=== PATIENT | female | born 1970 | race Hispanic/Latino ===

== ENCOUNTER 2023-06-20 09:57 | Emergency (ER) | payer SELFPAY ==
[~2023-06-20] VITALS: Ht 170.2 cm; Wt 80.5 kg
[2023-06-20] MEDS ORDERED: ADENOSINE 6MG/2ML 3 ML ONE (10:10)
[2023-06-20] MEDS ORDERED: ADENOSINE 6 MG/2 ML VIAL IV ONE (10:15)
[2023-06-20] MEDS ORDERED: DILTIAZEM HCL 5 MG/ML 5 ML VIAL IV STA (10:18)
[2023-06-20] MEDS ORDERED: DIGOXIN INJ 0.25 MG/ML 2 ML AMP IV STA (10:18)
[2023-06-20] MEDS ORDERED: METOPROLOL TARTRATE INJ 1 MG/ML VIAL IV STA (10:18)
[2023-06-20] MEDS ORDERED: SODIUM CHLORIDE 0.9% 1000ML 1,000 ML IV STA (10:19)
[2023-06-20] MEDS ORDERED: SODIUM CHLORIDE 0.9% 1000ML 1,000 ML ONE (10:28)
[2023-06-20 11:08] VITALS: O2SAT 96
== END 2023-06-20 11:20 | disposition home or self-care (01) ==
LOC: FSED 09:59
DX: R00.2 Palpitations (principal); I47.10 Supraventricular tachycardia, unspecified; R42 Dizziness and giddiness; R94.31 Abnormal electrocardiogram [ECG] [EKG]
CPT/HCPCS: 71045; 80053; 82553; 84484; 85025; 93005 ×2; 96374; 96375; 99284; J0153; J1160; J7030